=== PATIENT | male | born 1955 | race Caucasian/White ===

== ENCOUNTER 2019-01-19 21:12 | Emergency (ER) | payer OTHER ==
--- NOTE | 2019-01-19 22:09 | EDPHY ---
H & P Stated Complaint: SLID ON DRIVEWAY AT 13:30 R EYE SWELLING NOW, NO LOC Time Seen by Provider: 01/19/19 21:54 HPI/ROS: Chief Complaint: Right fall, right eyebrow laceration, he eye swelling HPI: A 63-year-old male had a mechanical fall when he tripped this afternoon, landed on his face. Patient sustained a laceration to his right eyebrow. Has had worsening swelling around his eye. No vision changes. Did not have a loss of consciousness. Is not take any blood thinning medications. No neck pain. No numbness or weakness. Did strike his shoulder. No other injuries. ROS: 10 systems were reviewed and were negative except those elements noted in the HPI. PMH: Denies Social History: No smoking, occasional alcohol, no recreational drug use Family History: non-contributory Physical Exam: Gen: Awake, Alert, Airway Intact HEENT: Head: Atraumatic Eyes: PERRLA, EOMI, there is no hyphema. No diplopia Ears: No hemotympanum Nose: No epistaxis Mouth: Normal dentition, Airway patent Face: Patient has significant swelling to his right upper eyelid. There is a 2 cm curved laceration above his right eyebrow. There is also a 5 mm laceration lateral to the right eye. There is no bony tenderness or crepitus. No infraorbital ecchymosis. Patient has significant abrasion to his right face lateral to his right eye. Neck: non-tender, no stepoff, Full ROM without pain Chest: non-tender, lungs CTA Heart: normal heart tones Abd: soft, non-tender, atraumatic Pelvis: non-tender, stable to AP and Lateral compression Back: atraumatic, no midline tenderness Ext: atramatic, full ROM Skin: no rash Neuro: CN II-XII intact, Strength 5/5 in all extremities, sensation intact in all extremities - Personal History Current Tetanus/Diphtheria Vaccine: No Current Tetanus Diphtheria and Acellular Pertussis (TDAP): No - Medical/Surgical History Hx Asthma: No Hx Chronic Respiratory Disease: No Hx Diabetes: No Hx Cardiac Disease: No Hx Renal Disease: No Hx Cirrhosis: No Hx Alcoholism: No Hx HIV/AIDS: No Hx Splenectomy or Spleen Trauma: No Other PMH: DENIES - Social History Smoking Status: Never smoked Constitutional: Initial Vital Signs Temperature (C) 37.0 C 01/19/19 21:18 Heart Rate 68 01/19/19 21:18 Respiratory Rate 18 01/19/19 21:18 Blood Pressure 146/90 H 01/19/19 21:18 O2 Sat (%) 96 01/19/19 21:18 O2 Delivery Mode Room Air Allergies/Adverse Reactions: No Known Allergies Allergy (Unverified 01/19/19 21:20) Home Medications: Medication Instructions Recorded NK [No Known Home Meds] 01/19/19 Medical Decision Making Procedures: Procedure: Laceration 1. repair. Verbal consent was obtained from the patient. The 2 cm laceration on the right eyebrow was anesthetized in the usual fashion. The wound was irrigated, draped and explored to its base with a gloved finger. There were no deep structures involved. No tendon injury was identified. The wound was repaired with 5, 6-0 Prolene simple interrupted sutures. The wound repair was uncomplicated. The procedure was performed by myself. Procedure: Laceration 2. repair. Verbal consent was obtained from the patient. The 5 mm laceration on the right lateral face was anesthetized in the usual fashion. The wound was irrigated, draped and explored to its base with a gloved finger. There were no deep structures involved. No tendon injury was identified. The wound was repaired with 1, 6-0 Prolene simple interrupted suture. The wound repair was uncomplicated. The procedure was performed by myself. ED Course/Re-evaluation: 63-year-old male status post fall with significant periorbital edema with ecchymosis. Clinically there is absolutely no evidence of ocular injury. A hyphema. No subconjunctival hemorrhage. Extraocular is are impact. No diplopia. Visual acuity is appropriate. Lacerations been repaired. His will discharge with follow-up as an outpatient, return for any concerns. Departure - Departure Disposition: Home, Routine, Self-Care Clinical Impression: Contusion of face, Eyebrow laceration, Abrasion Condition: Good Instructions: Care For Your Stitches (ED), Abrasion (ED), Facial Contusion (ED) , Facial Laceration (ED), Diphtheria/Acellular Pertussis/Tetanus Booster Vaccine (By injection) Additional Instructions: Sutures need to be removed in 5 days. You may return to the emergency department we will remove them for you. Return sooner for increasing headache, vision changes, uncontrolled nausea vomiting, numbness, weakness, discharge from the wound, or any other concerns. Referrals: ARNOLDO BOWSER [Primary Care Provider] - As per Instructions
[2019-01-19 22:44] VITALS: BP 158/90
[2019-01-19] MEDS ORDERED: TDAP ADULT 0.5 ML INJ (BOOSTRIX) IM ONE (22:47)
== END 2019-01-19 23:16 | disposition home or self-care (01) ==
PROC: 0HQ1XZZ Repair Face Skin, External Approach (ICD-10-PCS; principal; 2019-01-19)
DX: S01.81XA Laceration without foreign body of other part of head, initial encounter (principal); W22.8XXA Striking against or struck by other objects, initial encounter; Y92.014 Private driveway to single-family (private) house as the place of occurrence of the external cause; Z23 Encounter for immunization